=== PATIENT | female | born 1985 | race American Indian/Alaskan Native ===

== ENCOUNTER 2021-01-09 09:23 | Outpatient (CLI) | payer OTHER ==
[2021-01-09 09:47] VITALS: BP 126/80
--- NOTE | 2021-01-09 10:46 | Anesthesia Day of Surgery ---
Anesthesia Day of Surgery - Day of Surgery Patient Examined: Yes Patient H&P Reviewed: Yes Patient is NPO: No (0700) Beta Blockers: No Cardiac Clearance: No Pulmonary Clearance: No Goran's Test: N/A
[2021-01-09] MEDS ORDERED: LACTATED RINGERS 1,000 ML IV ONE (11:00)
[2021-01-09 11:04] LABS: Hematocrit 38.6 % (30.3-42.9); Hemoglobin 12.7 gm/dl (10.1-14.3); Mean Corpuscular HGB Conc 33 % (30-34); Mean Corpuscular Volume 79 fl (79-97); Platelet Count 379 K/mm3 (140-440); Red Blood Count 4.91 M/mm3 (3.65-5.03); Red Cell Distribution Width 14.4 % (13.2-15.2)
== END 2021-01-09 11:05 | disposition home or self-care (01) ==
LOC: TRG 09:23 → APU 09:23 → TRG 11:05 → EDSTATUS 11:30
DX: N88.3 Incompetence of cervix uteri (principal); Z79.899 Other long term (current) drug therapy; Z82.49 Family history of ischemic heart disease and other diseases of the circulatory system; Z83.3 Family history of diabetes mellitus
CPT/HCPCS: 36415; 85027; 86850; 86900; 86901

== ENCOUNTER 2021-01-11 10:09 | Outpatient (CLI) | payer OTHER ==
[2021-01-11] MEDS ORDERED: LACTATED RINGERS 500 ML IV ONE (10:28)
[2021-01-11 12:22] LABS: Hematocrit 39.3 % (30.3-42.9); Hemoglobin 12.8 gm/dl (10.1-14.3); Mean Corpuscular HGB Conc 33 % (30-34); Mean Corpuscular Volume 77 fl (79-97); Platelet Count 390 K/mm3 (140-440); Red Blood Count 5.07 M/mm3 (3.65-5.03); Red Cell Distribution Width 14.4 % (13.2-15.2)
[2021-01-11] MEDS ORDERED: LACTATED RINGERS 1,000 ML IV ONE (12:36)
[2021-01-11] MEDS ORDERED: BUPIVACAINE /DEX-WATER 0.75% (2 ML) AMPULE INFILTRATI ONE (13:13)
[2021-01-11] MEDS ORDERED: ONDANSETRON 4 MG/2 ML INJ ONE (13:13)
--- NOTE | 2021-01-11 13:56 | Anesthesia Day of Surgery ---
Anesthesia Day of Surgery - Day of Surgery Patient Examined: Yes Patient H&P Reviewed: Yes Patient is NPO: Yes Beta Blockers: No Cardiac Clearance: No Pulmonary Clearance: No Goran's Test: N/A
--- NOTE | 2021-01-11 13:57 | Anesthesia Consultation ---
Anesthesia Consult and Med Hx Date of service: 01/11/21 - Airway Anesthetic Teeth Evaluation: Good ROM Head & Neck: Adequate Mental/Hyoid Distance: Adequate Mallampati Class: Class III Intubation Access Assessment: Possibly Difficult - Pulmonary Exam CTA: Yes - Cardiac Exam Cardiac Exam: RRR - Pre-Operative Health Status ASA Pre-Surgery Classification: ASA2 Proposed Anesthetic Plan: Spinal - Pulmonary Hx Smoking: No Hx Asthma: No Hx Sleep Apnea: No - Cardiovascular System Hx Hypertension: No Hx Heart Attack/AMI: No Hx Angina: No - Central Nervous System Hx Seizures: No Hx Psychiatric Problems: No - Gastrointestinal Hx Gastroesophageal Reflux Disease: No - Endocrine Hx Renal Disease: No Hx Liver Disease: No Hx Insulin Dependent Diabetes: No Hx Non-Insulin Dependent Diabetes: No Hx Hypothyroidism: No Hx Hyperthyroidism: No - Hematic Hx Anemia: No Hx Sickle Cell Disease: No - Other Systems Hx Alcohol Use: No - Additional Comments Anesthesia Medical History Comments: PCOS
--- NOTE | 2021-01-11 13:58 | Progress Note ---
Spinal Anesthesia Block - Spinal Anesthesia Block Start Time: 13:17 Stop Time: 13:24 Performed by:: TIARRA SINGH (Magdi MAYS) Procedure: Spinal anesthesia block is being performed for [cerclage]. H&P, labs have been reviewed. Patient's questions and concerns have been answered. Informed consent has been performed. Timeout has was performed. Patient in sitting position on side of bed. Sterile prep and drape was performed. 3 mL 1% lidocaine skin wheal at L [3]-L [4]. Needle introducer advanced. 25-gauge spinal needle advanced, [+] CSF [-] blood. [Marcaine 7.5mg] Spinal dose was given. All needles removed. Patient tolerated procedure well.
[2021-01-11] MEDS ORDERED: INDOMETHACIN 25 MG CAP PO ONE (14:00)
[2021-01-11] MEDS ORDERED: fentaNYL 100 MCG/2 ML INJ ONE (14:03)
[2021-01-11] MEDS ORDERED: ONDANSETRON 4 MG/2 ML INJ IV PRN (14:30)
[2021-01-11 15:21] VITALS: BP 107/71
--- NOTE | 2021-01-11 15:43 | Operative Report ---
Operative Report Operative Report: PRE-OPERATIVE DIAGNOSIS: 1. Single intrauterine at 17w 0d gestation 2. Recurrent loss 3. Cervical incompetence 4. Advanced Maternal Age POST-OPERATIVE DIAGNOSIS: Same PROCEDURE: History indicated Reyes cerclage ATTENDING: Rasheeda Dennison MD ANESTHESIA: Spinal COMPLICATIONS: None. ESTIMATED BLOOD LOSS: 5 cc FINDINGS: Normal appearing, closed cervix with no lesions. Subjectively shortened cervix. Normal external and internal genitalia. Cerclage placed with Mersaline tape x 1 and secured at 12 oclock position. INDICATIONS: Cervical incompetence with multiple 2nd trimester losses. All risks, benefits and alternatives were discussed and informed consent was obtained. PROCEDURE: The patient was taken to the operating room and a spinal anesthetic was administered without difficulty. The patient was placed in the dorsal lithotomy position, legs were positioned in Goran stirrups. Analgesia was deemed to be adequate. The patient was prepped and draped in the usual sterile fashion and put in Trendelenburg. The patient's bladder was catheterized. A weighted sterile retractor was placed in the vagina followed by an anterior retractor to better visualize the cervix. A right angle retractor was placed in the lateral side wall of the vagina. Ring forceps were placed on the anterior and posterior lips of the cervix for traction and to create a plain to place the stitch without rupturing membrane. A 5 Mersaline tape suture was use to place a stitch circumferentially around the cervix from 12 o'clock to 9 o'clock, 9 o'clock to 6 o'clock, 6 o'clock to 3 o'clock and from 3 o'clock to 12 o'clock at the level of the cervico-vaginal junction. The stitch was then tied with multiple knots to secure it. All instruments were removed from the vagina. Excellent hemostasis was noted. The bladder was then drained at the end of the procedure with a sterile catheter. The patient was taken to the recovery room in stable condition. Sponge, lap, needle counts were correct times two.
--- NOTE | 2021-01-11 16:02 | Post Anesthesia Evaluation ---
- Post Anesthesia Evaluation Patient Participated: Yes Airway Patent: Yes Stable Respiratory Function: Yes Nausea/Vomiting: No Temp > 96.8F: Yes Pain Manageable: Yes Adequeate Hydration: Yes Anesthesia Complications: No Block Receding Appropriately: Yes Patient on Ventilator: No
== END 2021-01-11 18:20 | disposition home or self-care (01) ==
LOC: TRG 10:09 → APU 10:51 → EDSTATUS 11:30 → LD 15:00 → TRG 18:20
PROVIDERS: ATTEND Obstetrics & Gynecology Maternal & Fetal Medicine
DX: O34.32 Maternal care for cervical incompetence, second trimester (principal); Z3A.17 17 weeks gestation of pregnancy; Z82.49 Family history of ischemic heart disease and other diseases of the circulatory system; Z79.899 Other long term (current) drug therapy; Z98.890 Other specified postprocedural states
CPT/HCPCS: 36415; 59320; 85027; 86850; 86900; 86901; J3010; J3490; J2405

== ENCOUNTER 2021-06-14 15:39 | Outpatient (CLI) | payer OTHER ==
[2021-06-14] MEDS ORDERED: LACTATED RINGERS 1,000 ML ONE ×2 (16:52→23:27)
[2021-06-14 17:35] LABS: Bacteria,Urine 1+ /HPF (Negative); Bilirubin,Urine NEG (Negative); Blood,Urine NEG (Negative); Color,Urine Yellow (Yellow); Mucus,Urine 1+ /HPF; Urobilinogen,Urine < 2.0 mg/dL (<2.0)
[2021-06-14 17:40] LABS: Amphetamine Screen,Urine Negative; Benzodiazepines Screen,Urine Negative; Cannabinoid Screen,Urine Negative; Cocaine Screen,Urine Negative; Methadone Screen,Urine Negative; Opiate Screen,Urine Negative
--- NOTE | 2021-06-14 18:12 | Ultrasound Report ---
ULTRASOUND BIOPHYSICAL PROFILE INDICATION: IUGR: EFW,ENRIQUE,Placenta location,BPP. COMPARISON: None available. FINDINGS: BREATHING MOVEMENT = 0 GROSS BODY MOVEMENT = 2 TONE = 2 QUALITATIVE AMNIOTIC FLUID VOLUME = 2 TOTAL BIOPHYSICAL SCORE = 01/22 AMNIOTIC FLUID INDEX (cm) = 12.7 PRESENTATION: Cephalic. HEART RATE (beats per minute): 152 IMPRESSION: 1. biophysical profile = 11/22 Signer Name: Adrian Yi MD Signed: 06/14/2021 6:08 PM Workstation Name: [email or web address]
--- NOTE | 2021-06-14 18:15 | Ultrasound Report ---
ULTRASOUND OBSTETRIC INDICATION / CLINICAL INFORMATION: IUGR: EFW,ENRIQUE,Placenta location,BPP. Clinical Gestational Age (GA): 39 weeks 0 days TECHNIQUE: Transabdominal. COMPARISON: None available. FINDINGS: There is a single intrauterine . Biparietal Diameter = 9.2 cm = 37 weeks, 3 day(s). Head Circumference = 32.7 cm = 37 weeks, 1 day(s). Abdominal Circumference = 35.1 cm = 39 weeks, 0 day(s). Femur Length = 7.1 cm = 36 weeks, 3 day(s). Average Ultrasound Age (AUA) = 37 weeks, 4 day(s). Heart Rate: 152 beats per minute. Estimated Weight in grams (if calculated): 3382 Estimated Weight Growth Percentile (if calculated): Position: cephalic. Cervix: closed. Length in cm (if measured): Placenta: Posterior fundal and free of the os. Amniotic Fluid Volume: normal Amniotic Fluid Index (ENRIQUE) in cm (if calculated): . Maternal Adnexa: No significant abnormality. IMPRESSION: 1. Single, living intrauterine with estimated sonographic age of 37 weeks, 4 day(s). 2. No significant sonographic abnormality. Signer Name: Adrian Yi MD Signed: 06/14/2021 6:10 PM Workstation Name: [email or web address]
[2021-06-14 22:10] VITALS: BP 106/58
== END 2021-06-14 16:37 | disposition home or self-care (01) ==
LOC: TRG 15:39 → APU 15:41 → TRG 16:37
PROVIDERS: ATTEND Obstetrics & Gynecology
DX: O34.33 Maternal care for cervical incompetence, third trimester (principal); O47.03 False labor before 37 completed weeks of gestation, third trimester; O09.523 Supervision of elderly multigravida, third trimester; Z3A.39 39 weeks gestation of pregnancy
CPT/HCPCS: 59025; 76816; 76819; 80307; 81001; 96360

== ENCOUNTER 2021-06-16 02:13 | Inpatient (IN) | payer OTHER ==
[2021-06-16] MEDS ORDERED: OXYTOCIN 10 UNIT/1 ML INJ IM PRN (03:37)
[2021-06-16] MEDS ORDERED: METHYLERGONOVINE MALEATE 0.2 MG/ML VIAL IM PRN (03:37)
[2021-06-16] MEDS ORDERED: BUTORPHANOL 2 MG/1 ML INJ IV PRN (03:37)
[2021-06-16] MEDS ORDERED: ONDANSETRON 4 MG/2 ML INJ IV PRN (03:37)
[2021-06-16] MEDS ORDERED: TERBUTALINE 1 MG/1 ML INJ SUB-Q PRN (03:37)
[2021-06-16] MEDS ORDERED: ACETAMINOPHEN 325 MG TAB PO PRN (03:37)
[2021-06-16] MEDS ORDERED: miSOPROStol 200 MCG TAB PR PRN (03:37)
[2021-06-16] MEDS ORDERED: LIDOCAINE (2%) 20 MG/1 ML VIAL 20 ML MDV INFILTRATI ONE ×2 (03:37→12:38)
[2021-06-16] MEDS ORDERED: MINERAL OIL 30 ML ORAL LIQD PO PRN (03:37)
[2021-06-16] MEDS ORDERED: ePHEDrine SULFATE 50 MG/1 ML INJ IV PRN ×2 (03:37→04:28)
[2021-06-16] MEDS ORDERED: LOPERAMIDE 2 MG CAP PO PRN (03:37)
[2021-06-16] MEDS ORDERED: fentaNYL 100 MCG/2 ML INJ IV PRN (03:37)
[2021-06-16] MEDS ORDERED: CARBOPROST TROMETHAMINE 250 MCG/1 ML INJ IM PRN (03:37)
[2021-06-16] MEDS ORDERED: OXYTOCIN DRIP 30 UNITS/500 ML BAG IV SCH ×2 (04:00)
[2021-06-16] MEDS: LACTATED RINGERS 1,000 ML IV SCH ×3 (04:27→09:47)
[2021-06-16] MEDS ORDERED: NALOXONE 2 MG/2 ML INJ IV PRN (04:28)
--- NOTE | 2021-06-16 04:33 | Anesthesia Consultation ---
Anesthesia Consult and Med Hx Date of service: 06/16/21 - Airway Anesthetic Teeth Evaluation: Poor ROM Head & Neck: Adequate Mental/Hyoid Distance: Adequate Mallampati Class: Class II Intubation Access Assessment: Probably Good - Pulmonary Exam CTA: Yes - Cardiac Exam Cardiac Exam: RRR - Pre-Operative Health Status ASA Pre-Surgery Classification: ASA2 Proposed Anesthetic Plan: Epidural - Pulmonary Hx Smoking: No Hx Asthma: No Hx Respiratory Symptoms: No SOB: No COPD: No Home Oxygen Therapy: No Hx Pneumonia: No Hx Sleep Apnea: No - Cardiovascular System Hx Hypertension: No Hx Coronary Artery Disease: No Hx Heart Attack/AMI: No Hx Angina: No Hx Percutaneous Transluminal Coronary Angioplasty (PTCA): No Hx Cardia Arrhythmia: No Hx Pacemaker: No Hx Internal Defibrillator: No Hx Valvular Heart Disease: No Hx Heart Murmur: No Hx Peripheral Vascular Disease: No - Central Nervous System Hx Neuromuscular Disorder: No Hx Seizures: No CVA: No Hx Back Pain: Yes Hx Psychiatric Problems: No - Gastrointestinal Hx Ulcer: No Hx Gastroesophageal Reflux Disease: No - Endocrine Hx Renal Disease: Yes (UTIs) Hx End Stage Renal Disease: No Hx Cirrhosis: No Hx Liver Disease: No Hx Insulin Dependent Diabetes: No Hx Non-Insulin Dependent Diabetes: No Hx Thyroid Disease: No Hx Hypothyroidism: No Hx Hyperthyroidism: No - Hematic Hx Anemia: No Hx Sickle Cell Disease: No - Other Systems Hx Alcohol Use: No Hx Substance Use: No Hx Cancer: No Hx Obesity: Yes
[2021-06-16 04:49] LABS: Mean Corpuscular HGB Conc 30 % (30-34); Platelet Count 270 K/mm3 (140-440); Red Blood Count 5.06 M/mm3 (3.65-5.03); Red Cell Distribution Width 18.2 % (13.2-15.2)
[2021-06-16 04:52] LABS: Hematocrit 34.6 % (30.3-42.9); Hemoglobin 10.2 gm/dl (10.1-14.3); Mean Corpuscular Volume 68 fl (79-97)
[2021-06-16] MEDS ORDERED: fentaNYL-BUPIV 2 MCG/ML-0.125% 200 MCG/100 ML BAG EPIDURAL SCH (05:00)
--- NOTE | 2021-06-16 05:20 | Progress Note ---
Labor Epidural - Labor Epidural Start Time: 05:00 Stop Time: 05:13 Performed by:: GARETH HUMPHRIES Procedure: Patient is requesting epidural for labor pain. H&P and labs reviewed. Procedure explained, questions answered, consent obtained. Patient placed in sitting position with monitors applied. Timeout performed immediately before start of procedure. Prep/drape in usual sterile fashion. Skin localized 3 mL 1% lidocaine at L[2]-L[3] interspace. 18-gauge [employer] Labtead epidural needle advanced to MIGUEL with saline at [8] cm. No blood/CSF noted via epidural needle. Epidural catheter advanced to [12] cm. Negative aspiration for blood and CSF via catheter, negative response to test dose 3 ml 1.5% lidocaine w/ epi. Sterile dressing applied followed by tape reinforcement. Patient tolerated procedure well. No immediate complications noted.
--- NOTE | 2021-06-16 05:33 | History and Physical Report ---
History of Present Illness Date of examination: 06/16/21 Date of admission: 06/16/21 03:38 Chief complaint: LOF History of present illness: 35 y/o at 39-6/7 weeks presents to OBT reporting LOF. No VB. Good FM. CTX started after LOF. In OBT, SVE was 4/80%/-2. She is admitted for Term PROM. Past History Past Medical History: no pertinent history Family/Genetic History: none Social history: no significant social history - Obstetrical History Expected Date of Delivery: 06/17/21 Actual Gestation: 39 Week(s) 6 Day(s) : 6 Number of Pregnancies: 1 Spontaneous Abortions: 3 Medications and Allergies Allergies Allergy/AdvReac Type Severity Reaction Status Date / Time No Known Allergies Allergy Verified 06/14/21 16:05 Home Medications Medication Instructions Recorded Confirmed Last Taken Type Indomethacin [Indocin] 25 mg PO Q8H 2 Days #6 capsule 01/11/21 Unknown Rx Active Meds: Active Medications Acetaminophen (Acetaminophen 325 Mg Tab) 650 mg PO Q4H PRN PRN Reason: Pain, Mild (1-3) Butorphanol Tartrate (Butorphanol 2 Mg/1 Ml Inj) 1 mg IV Q2H PRN PRN Reason: Pain, Moderate(4-6) LABOR PAIN Carboprost Tromethamine (Carboprost Tromethamine 250 Mcg/1 Ml Inj) 250 mcg IM ONCE PRN PRN Reason: Uterine Bleeding Ephedrine Sulfate (Ephedrine Sulfate 50 Mg/1 Ml Inj) 10 mg IV Q2M PRN PRN Reason: Hypotension Fentanyl (Fentanyl 100 Mcg/2 Ml Inj) 100 mcg IV Q2H PRN PRN Reason: Pain,Severe (7-10) LABOR PAIN Oxytocin/Sodium Chloride (Pitocin/Ns 30 Unit/500ml) 30 units in 500 mls @ 2 mls/hr IV TITR TAYLOR; Protocol Lactated Ringer's (Lactated Ringers) 1,000 mls @ 125 mls/hr IV DIRECT TAYLOR Last Admin: 06/16/21 05:04 Dose: 125 mls/hr Documented by: Oxytocin/Sodium Chloride (Pitocin/Ns 30 Unit/500ml) 30 units in 500 mls @ 40 mls/hr IV TITR TAYLOR; Protocol Fentanyl/Bupivacaine/Sodium Chlor (Fentanyl-Bupiv 2 Mcg/Ml-0.125%) 200 mcg in 100 mls @ 12 mls/hr EPIDURAL TITR TAYLOR; Protocol Loperamide HCl (Loperamide 2 Mg Cap) 2 mg PO ONCE PRN PRN Reason: give with Hemabate Methylergonovine Maleate (Methylergonovine Maleate 0.2 Mg/Ml Vial) 0.2 mg IM ONCE PRN PRN Reason: Uterine Bleeding Mineral Oil (Mineral Oil 30 Ml Oral Liqd) 30 ml PO QHS PRN PRN Reason: Constipation Misoprostol (Misoprostol 200 Mcg Tab) 800 mcg IN ONCE PRN PRN Reason: Uterine Bleeding Naloxone HCl (Naloxone 2 Mg/2 Ml Inj) 0.2 mg IV Q5M PRN PRN Reason: Respiratory sedation Ondansetron HCl (Ondansetron 4 Mg/2 Ml Inj) 4 mg IV Q8H PRN PRN Reason: Nausea And Vomiting Oxytocin (Oxytocin 10 Unit/1 Ml Inj) 10 unit IM ONCE PRN PRN Reason: Uterine Bleeding Terbutaline Sulfate (Terbutaline 1 Mg/1 Ml Inj) 0.25 mg SUB-Q ONCE PRN PRN Reason: Hyperstimulation/Hypertonicity Review of Systems All systems: negative - Vital Signs Vital signs: Vital Signs Pulse BP Pulse Ox 121 H 112/84 98 06/16/21 02:35 06/16/21 02:35 06/16/21 02:35 Temp Pulse Resp BP Pulse Ox 98.7 F 91 H 18 101/65 97 06/16/21 02:37 06/16/21 05:28 06/16/21 02:37 06/16/21 05:27 06/16/21 05:28 - Physical Exam Breasts: Positive: normal Cardiovascular: Regular rate Lungs: Positive: Normal air movement Abdomen: Positive: normal appearance Genitourinary (Female): Positive: normal external genitalia Vulva: both: normal Vagina: Positive: normal moisture Uterus: Positive: enlarged Adnexa: both: normal Anus/Rectum: Positive: normal perianal skin Extremities: Positive: normal Deep Tendon Reflex Grade: Normal +2 - Obstetrical FHR: category 1 Uterine Contraction Monitor Mode: Palpation Cervical Dilatation: 4 Cervical Effacement Percentage: 80 station: -3 Uterine Contraction Frequency (min): 4 Uterine Contraction Pattern: Regular Results Result Diagrams: 06/16/21 03:24 Abnormal lab results 12/31/21 Range/Units 03:24 RBC 5.06 H (3.65-5.03) M/mm3 MCV 68 L (79-97) fl MCH 20 L (28-32) pg RDW 18.2 H (13.2-15.2) % All other labs normal. Assessment and Plan - Patient Problems (1) 39 weeks gestation of Current Visit: Yes Status: Acute Plan to address problem: care is UTD. (2) Full-term PROM with onset of labor within 24 hours of rupture Current Visit: Yes Status: Acute Plan to address problem: Admit to L&D. Patient in labor now. Augment with Pitocin. (3) AMA (advanced maternal age) multigravida 35+ Current Visit: Yes Status: Acute Plan to address problem: care is UTD. (4) Labor abnormal Current Visit: Yes Status: Acute Plan to address problem: Admit to L&D. Patient in labor now. Augment with Pitocin.
[2021-06-16] MEDS ORDERED: SODIUM CHLORIDE 0.9% 1000 ML 1,000 ML VG SCH (09:00)
--- NOTE | 2021-06-16 09:19 | Event Note ---
Date: 06/16/21 Assumed care of patient at 08:00 this morning. FSE replaced at 08:50. Normal FHR baseline rate and moderate variability with variable FHR decelerations and prolonged FHR deceleration which resolved when patient was repostioned to hands/knees. Pitocin turned off and amnioinfusion ordered and informed nurse to start amnioinfusion. O2 applied per face mask at 10 LPM. SQ Brethine given. Dr. Tang consulted and also viewed FHR tracing.
[2021-06-16] MEDS ORDERED: LANOLIN/ZINC/DIMETHICONE (LANSINOH) 7 GM TP PRN ×2 (13:33)
[2021-06-16] MEDS ORDERED: HYDROCORTISONE 25 MG RECTAL SUPP PR PRN (13:33)
[2021-06-16] MEDS ORDERED: BENZOCAINE/MENTHOL 20/0.5% TOP SPRAY 56 GM TP PRN (13:33)
[2021-06-16] MEDS ORDERED: MAGNESIUM HYDROXIDE (MOM) ORAL LIQD UDC PO PRN (13:33)
--- NOTE | 2021-06-16 13:39 | Procedure Note ---
OB Delivery Note - Delivery Date of Delivery: 06/16/21 Surgeon: ROSARIO RATLIFF Estimated blood loss: 300cc - Vaginal Delivery presentation: vertex Delivery position: OA Intrapartum events: mult.variable deceleratio Delivery monitor: external FHT, external uterine Route of delivery: Delivery placenta: spontaneous Delivery cord: 3 umbilical vessels Episiotomy: midline Delivery laceration: vaginal side wall Delivery repair: vicryl Anesthesia: local, epidural Delivery comments: Spontaneous vaginal delivery at 12:31 of liveborn male weighing 3.27 kg over 2nd degree midline episiotomy with apgars of 8/9. Variable FHR decelerations prior to delivery; NICU called to attend delivery due to FHR decelerations. Mild right anterior shoulder dystocia, resolved with Fredy maneuver and delivery of posterior arm. Baby placed skin to skin with mom immediately after delivery. Baby dried with warm blankets and suctioned with bulb syringe. Spontaneous cry and respirations. 3 vessel cord double clamped and cut. Cord blood obtained. Spontaneous delivery of intact placenta and membranes at 12:34; trailing membranes. EBL 300 cc. Pitocin to IV fluids after delivery of placenta. Fundus firm and midline at 1 FB above umbilicus. 2nd degree midline episiotomy and left vaginal laceration repaired with 2-0 vicryl in usual sterile fashion. No other lacerations noted. Vaginal sweep negative. Sponge count correct. Mother and baby stable in birthing room. Baby moving all extremities well.
[2021-06-16] MEDS: IBUPROFEN 600 MG TAB PO SCH (15:07)
[2021-06-16 15:11] LABS: Hepatitis C Virus Antibody Non-Reactive (NonReactive)
[2021-06-16] MEDS: HYDROcodone/ACETAMINOPHEN 5-325 MG TAB PO PRN (16:21)
[2021-06-16] MEDS: WITCH HAZEL/ GLYCERIN PAD TP PRN (16:42)
--- NOTE | 2021-06-16 17:09 | Ultrasound Report ---
US pelvic limited INDICATION: check for accessory placental lobe/retained placen. TECHNIQUE: Limited pelvic ultrasound COMPARISON: None available. FINDINGS: The uterus is enlarged consistent with recent . There is a 3 cm solid area in the lower endo metrium without internal flow. There is a 4.5 cm fibroid in the superior myometrium. IMPRESSION: 1. 3 cm solid area in the lower endometrium without internal flow that could indicate a portion of re tained placenta. Signer Name: Sunil Parks MD Signed: 06/16/2021 5:05 PM Workstation Name: [id number]
[2021-06-16] MEDS ORDERED: GENTAMICIN 100 MG in SODIUM CHLORIDE 0.9% 100 ML IV SCH (17:45)
[2021-06-16] MEDS ORDERED: miSOPROStol 200 MCG TAB PR ONE (17:50)
[2021-06-16] MEDS ORDERED: METHYLERGONOVINE 0.2 MG TABLET PO SCH (18:00)
[2021-06-16] MEDS: AMPICILLIN/NS 2 GM/100 ML 2 GM/100 ML BAG IV SCH (19:15)
[2021-06-17] MEDS: HYDROcodone/ACETAMINOPHEN 5-325 MG TAB PO PRN ×3 (01:00→11:51)
[2021-06-17] MEDS: AMPICILLIN/NS 2 GM/100 ML 2 GM/100 ML BAG IV SCH ×3 (02:01→20:12)
[2021-06-17] MEDS: IBUPROFEN 600 MG TAB PO SCH ×3 (02:02→20:09)
[2021-06-17 04:34] LABS: Hematocrit 31.9 % (30.3-42.9); Hemoglobin 9.4 gm/dl (10.1-14.3)
[2021-06-17] MEDS: DOCUSATE SODIUM 100 MG CAP PO SCH ×2 (06:00→11:55)
--- NOTE | 2021-06-17 08:00 | Progress Note ---
Assessment and Plan PPD#1 doing fair 1. need better pain control 2. Routine PP care and discharge home in the am Subjective Date of service: 06/17/21 Principal diagnosis: PPD#1 Interval history: Pt states that she has a lot of pain to laceration site when she voids and also to her lower back. Pt is bottle feeding. Vag bleed like a period Objective - Constitutional Vitals: Vital Signs - 12hr 06/17/21 06/17/21 06/17/21 01:00 01:39 05:00 Temperature 98.4 F 98.1 F Pulse Rate 93 H 83 Respiratory 18 20 20 Rate Blood Pressure 119/81 Blood Pressure 120/73 [Right] O2 Sat by Pulse 97 97 Oximetry O2 Sat by Pulse Oximetry [ Bilateral] 06/17/21 06:00 Temperature Pulse Rate Respiratory 18 Rate Blood Pressure Blood Pressure [Right] O2 Sat by Pulse Oximetry O2 Sat by Pulse 99 Oximetry [ Bilateral] General appearance: Present: no acute distress - Neck Neck: normal ROM - Respiratory Respiratory effort: normal - Breasts Breasts: deferred - Cardiovascular Rhythm: regular Extremities: No edema - Gastrointestinal General gastrointestinal: Present: soft, non-tender - Genitourinary Female genitourinary: other (Fundus firm, non-tender 1cm below the umbilicus) - Integumentary Integumentary: warm, dry - Neurologic Neurologic: moves all extremities - Psychiatric Psychiatric: cooperative - Labs CBC & Chem 7: 06/17/21 04:07 Labs: Abnormal lab results 06/17/21 Range/Units 04:07 Hgb 9.4 L (10.1-14.3) gm/dl Medications & Allergies - Medications Allergies/Adverse Reactions: Allergies No Known Allergies Allergy (Verified 06/14/21 16:05) Home Medications: Home Medications Medication Instructions Recorded Confirmed Last Taken Type Indomethacin [Indocin] 25 mg PO Q8H 2 Days #6 capsule 01/11/21 Unknown Rx Active Medications: Generic Name Dose Route Start Last Admin Trade Name Freq PRN Reason Stop Dose Admin Hydrocodone Bitart/Acetaminophen 2 each 06/16/21 13:33 06/17/21 06:00 Hydrocodone/Acetaminophen 5-325 Mg Tab PO 2 each Q6H PRN Administration Pain, Moderate (4-6) Benzocaine/Menthol 1 spray 06/16/21 13:33 06/16/21 16:41 Benzocaine/Menthol 20/0.5% Top [place] 56 Gm TP 1 spray PRN PRN Administration Episiotomy Pain Docusate Sodium 100 mg 06/16/21 14:00 06/17/21 06:00 Docusate Sodium 100 Mg Cap PO Not Given BID [facility] Ferrous Sulfate 325 mg 06/17/21 10:00 Ferrous Sulfate 325 Mg Tab PO QDAY [facility] Hydrocortisone Acetate 25 mg 06/16/21 13:33 Hydrocortisone 25 Mg Rectal Supp UT BID PRN Hemorrhoids Ampicillin Sodium 2 gm in 100 mls @ 100 mls/hr 06/16/21 18:00 06/17/21 02:01 Ampicillin/Ns 2 Gm/100 Ml IV 100 mls/hr Q6H [facility] Administration Protocol Gentamicin Sulfate/Sodium Chloride 100 mg in 100 mls @ 200 mls/hr 06/16/21 22:00 06/17/21 00:00 Gentamicin/Ns 100 Mg/100 Ml IV 200 mls/hr Q8HR TAYLOR Administration Ibuprofen 600 mg 06/16/21 14:00 06/17/21 02:02 Ibuprofen 600 Mg Tab PO 600 mg Q6H TAYLOR Administration Magnesium Hydroxide 30 ml 06/16/21 13:33 Magnesium Hydroxide (Mom) Oral Liqd Udc PO HS PRN Constipation Multi-Ingredient Ointment 1 applic 06/16/21 13:33 Lanolin/Zinc/Dimethicone (Lansinoh) 7 Gm TP PRN PRN Sore Nipples Multi-Ingredient Ointment 1 applic 06/16/21 13:33 Lanolin/Zinc/Dimethicone (Lansinoh) 7 Gm TP PRN PRN dryness/cracking Sodium Chloride 10 ml 06/16/21 14:00 Sodium Chloride 0.9% 10 Ml Flush Syringe IV 06/23/21 13:59 PRN NR Witch Maggie/Glycerin 1 each 06/16/21 13:33 06/16/21 16:42 Witch Maggie/ Glycerin Pad TP 1 each PRN PRN Administration Hemorrhoid/cleansing/soothing
[2021-06-17] MEDS ORDERED: FERROUS SULFATE 325 MG TAB PO SCH (10:00)
[2021-06-17] MEDS: GENTAMICIN/NS 100 MG/100 ML 100 MG/100 ML BAG IV SCH ×3 (11:55→22:00)
[2021-06-17] MEDS ORDERED: LACTATED RINGERS 1000 ML IV SOLN IV SCH (16:00)
[2021-06-17] MEDS: WITCH HAZEL/ GLYCERIN PAD TP PRN (17:18)
--- NOTE | 2021-06-17 17:44 | Event Note ---
Date: 06/17/21 pt evaluated and pelvic 3-60/-2 with FHR category I; AROM done with clear fluid and IUPC placed and pt to get pitocin per protocol. Pitocin now at 4mu/min. Plan of care discussed and pt agrees. Hopeful for vaginal delivery.
[2021-06-18] MEDS: GENTAMICIN/NS 100 MG/100 ML 100 MG/100 ML BAG IV SCH ×2 (01:33→01:34)
[2021-06-18] MEDS: AMPICILLIN/NS 2 GM/100 ML 2 GM/100 ML BAG IV SCH ×2 (01:36→03:18)
[2021-06-18] MEDS: IBUPROFEN 600 MG TAB PO SCH ×2 (03:19→15:59)
[2021-06-18] MEDS: DOCUSATE SODIUM 100 MG CAP PO SCH ×2 (03:56→11:26)
[2021-06-18 06:35] LABS: Basophils % (Auto) 0.3 % (0.0-1.8); Eosinophils # (Auto) 0.2 K/mm3 (0.0-0.4); Eosinophils % (Auto) 1.5 % (0.0-4.3); Lymphocytes # (Auto) 2.4 K/mm3 (1.2-5.4); Lymphocytes % (Auto) 19.4 % (13.4-35.0); Mean Corpuscular HGB Conc 30 % (30-34); Monocytes # (Auto) 0.9 K/mm3 (0.0-0.8); Monocytes % (Auto) 7.6 % (0.0-7.3); Platelet Count 236 K/mm3 (140-440); Red Blood Count 4.57 M/mm3 (3.65-5.03); Red Cell Distribution Width 18.8 % (13.2-15.2)
[2021-06-18 06:39] LABS: Hematocrit 31.4 % (30.3-42.9); Hemoglobin 9.4 gm/dl (10.1-14.3); Mean Corpuscular Volume 69 fl (79-97)
--- NOTE | 2021-06-18 07:33 | Progress Note ---
Assessment and Plan PPD#2 with pelvic pain unclear source, GI with constipation vs abnormal u/s with ?retained products 1. Repeat pelvic u/s to definitely see if the 3cm structure still present and if it is, for surgical removal tomorrow with OR on diversion 2. Repeat cbc seen with with acceptable wbc of 12 3. MOM given since pt told nurse that this is an effective laxative for her; if not successful, then pt should be given dulcolax 4. Anesthesia team to be called concerning epidural site pain where pt reports severe discomfort 5. Straight cath urine to rule out as source of pain 6. Routine post op care. Subjective Date of service: 06/18/21 Principal diagnosis: PPD#2 Interval history: Pt c/o severe pelvic pain and lower back pain. pt also states that she has not had a BM and she has large hemorrhoids. pt declines to show me the hemorrhoids at this time stating it is embarrassing. Vag bleed less than a period. Pt believes the night nurses are not supportive. Objective - Constitutional Vitals: Vital Signs - 12hr 06/17/21 06/18/21 19:30 02:19 Temperature 98.7 F Pulse Rate 89 Respiratory 20 Rate Blood Pressure 109/79 O2 Sat by Pulse 99 Oximetry O2 Sat by Pulse 99 Oximetry [ Bilateral] General appearance: Present: no acute distress - Neck Neck: normal ROM - Respiratory Respiratory effort: normal - Breasts Breasts: normal - Cardiovascular Rhythm: regular Extremities: No edema - Gastrointestinal General gastrointestinal: Present: soft, non-tender - Genitourinary Female genitourinary: other (fundus firm below umbilicus, non-tender and lochia scant) - Integumentary Integumentary: warm, dry - Neurologic Neurologic: moves all extremities - Psychiatric Psychiatric: cooperative - Labs CBC & Chem 7: 06/18/21 06:18 Labs: Abnormal lab results 06/18/21 Range/Units 06:18 WBC 12.2 H (4.5-11.0) K/mm3 Hgb 9.4 L (10.1-14.3) gm/dl MCV 69 L (79-97) fl MCH 21 L (28-32) pg RDW 18.8 H (13.2-15.2) % [place] % (Auto) 7.6 H (0.0-7.3) % [place] # (Auto) 0.9 H (0.0-0.8) K/mm3 Seg Neutrophils % 71.2 H (40.0-70.0) % Seg Neutrophils # 8.7 H (1.8-7.7) K/mm3 Medications & Allergies - Medications Allergies/Adverse Reactions: Allergies No Known Allergies Allergy (Verified 06/14/21 16:05) Home Medications: Home Medications Medication Instructions Recorded Confirmed Last Taken Type Indomethacin [Indocin] 25 mg PO Q8H 2 Days #6 capsule 01/11/21 06/18/21 Unknown Rx Active Medications: Generic Name Dose Route Start Last Admin Trade Name Freq PRN Reason Stop Dose Admin Hydrocodone Bitart/Acetaminophen 2 each 06/16/21 13:33 06/17/21 11:51 Hydrocodone/Acetaminophen 5-325 Mg Tab PO 2 each Q6H PRN Administration Pain, Moderate (4-6) Benzocaine/Menthol 1 spray 06/16/21 13:33 06/16/21 16:41 Benzocaine/Menthol 20/0.5% Top [place] 56 Gm TP 1 spray PRN PRN Administration Episiotomy Pain Docusate Sodium 100 mg 06/16/21 14:00 06/18/21 03:56 Docusate Sodium 100 Mg Cap PO Not Given BID TAYLOR Ferrous Sulfate 325 mg 06/17/21 10:00 06/17/21 11:55 Ferrous Sulfate 325 Mg Tab PO 325 mg QDAY TAYLOR Administration Hydrocortisone Acetate 25 mg 06/16/21 13:33 06/17/21 16:44 Hydrocortisone 25 Mg Rectal Supp GA 25 mg BID PRN Administration Hemorrhoids Ampicillin Sodium 2 gm in 100 mls @ 100 mls/hr 06/16/21 18:00 06/18/21 03:18 Ampicillin/Ns 2 Gm/100 Ml IV 100 mls/hr Q6H TAYLOR Administration Protocol Gentamicin Sulfate/Sodium Chloride 100 mg in 100 mls @ 200 mls/hr 06/16/21 22:00 06/18/21 01:34 Gentamicin/Ns 100 Mg/100 Ml IV Not Given Q8HR TAYLOR Ibuprofen 600 mg 06/16/21 14:00 06/18/21 03:19 Ibuprofen 600 Mg Tab PO 600 mg Q6H TAYLOR Administration Lactated Ringer's 1,000 ml 06/17/21 16:00 06/17/21 16:45 Lactated Ringers 1000 Ml Iv Soln IV 1,000 ml DIRECT TAYLOR Administration Magnesium Hydroxide 30 ml 06/16/21 13:33 06/18/21 06:04 Magnesium Hydroxide (Mom) Oral Liqd Udc PO 30 ml HS PRN Administration Constipation Multi-Ingredient Ointment 1 applic 06/16/21 13:33 Lanolin/Zinc/Dimethicone (Lansinoh) 7 Gm TP PRN PRN Sore Nipples Multi-Ingredient Ointment 1 applic 06/16/21 13:33 Lanolin/Zinc/Dimethicone (Lansinoh) 7 Gm TP PRN PRN dryness/cracking Sodium Chloride 10 ml 06/16/21 14:00 Sodium Chloride 0.9% 10 Ml Flush Syringe IV 06/23/21 13:59 PRN NR [place]/Glycerin 1 each 06/16/21 13:33 06/17/21 17:18 [place]/ Glycerin Pad TP 1 each PRN PRN Administration Hemorrhoid/cleansing/soothing
--- NOTE | 2021-06-18 09:42 | Event Note ---
Date: 06/18/21 Notified by Geeta that the patient was c/o severe lower back pain. The procedure note was reviewed and nothing out of the ordinary was noted. The patient states that the pain is worse when she initially gets out of bed, but gets better as she moves around. The pain is better now than it has been. Examination of the site showed nothing other than some tenderness over the puncture site. The patient was advised to continue taking scheduled pain meds and ambulate as much as possible. At this time I do not think any imaging is necessary, but the patient was advised to report if the pain gets worse so that she can be reevaluated.
[2021-06-18] MEDS: HYDROcodone/ACETAMINOPHEN 5-325 MG TAB PO PRN (11:26)
[2021-06-18 11:39] LABS: Bilirubin,Urine NEG (Negative); Blood,Urine MOD (Negative); Color,Urine Yellow (Yellow); Mucus,Urine FEW /HPF; Protein,Urine <15 mg/dL mg/dL (Negative); Urobilinogen,Urine < 2.0 mg/dL (<2.0)
--- NOTE | 2021-06-18 12:43 | Ultrasound Report ---
US pelvic limited INDICATION: pelvic pain. COMPARISON: Previous ultrasound on 06/16/2021 FINDINGS: The endometrial stripe now measures 1.28 cm, without any internal flow. Myometrial masses measuring u p to 3.5 cm and noted likely indicating uterine fibroids. IMPRESSION: 1. Normal appearance of the endometrial stripe on the current exam. 2. Multiple uterine fibroids again seen. Signer Name: Sunil Parks MD Signed: 06/18/2021 12:38 PM Workstation Name: [email or web address]
--- NOTE | 2021-06-18 13:32 | Event Note ---
Date: 06/18/21 Patient states pelvic pain and back pain have resolved after she had BM. Pelvic US showed fibroids; no retained placenta noted. Patient desires discharge home today. Consulted with Dr. Tang. Dr. Tang states OK to discharge patient home today. Discussed with patient discharge instructions and warning signs. Advised patient to avoid intercourse, lifting, and housework. Rx Motrin and Ferrous Sulfate (see discharge summary). Also advised patient to continue taking her vitamin daily. Advised patient to follow up at [facility] in 2 weeks.
--- NOTE | 2021-06-18 13:35 | Discharge Summary ---
Providers - Providers Date of Admission: 06/16/21 03:38 Date of discharge: 06/18/21 Attending physician: TERRY GOMEZ MD Primary care physician: TERRY GOMEZ MD Hospitalization Reason for admission: rupture of membranes Delivery: Episiotomy: midline Other procedures: none complications: none Discharge diagnosis: IUP at term delivered baby: male Pertinent studies: Labs Hospital course: Stable hospital course Condition at discharge: Good Disposition: 01 HOME / SELF CARE / HOMELESS - Discharge Diagnoses (1) Term delivered Status: Acute (2) Anemia Status: Acute Plan - Discharge Medications Prescriptions: Ferrous Sulfate [Feosol 325 MG tab] 325 mg PO QDAY 30 Days #30 tablet Ibuprofen [Motrin] 800 mg PO Q8HR PRN 7 Days #21 tablet PRN Reason: Pain, Moderate (4-6) - Provider Discharge Summary Activity: routine, no sex for 6 weeks, no heavy lifting 4 weeks, no strenuous exercise Diet: routine Instructions: routine Additional instructions: Continue taking your vitamin daily at home. Follow up at [facility] in 2 weeks. Call your doctor immediately for: * Fever > 100.5 * Heavy vaginal bleeding ( >1 pad per hour) * Severe persistent headache * Shortness of breath * Reddened, hot, painful area to leg or breast - Follow up plan Follow up: ROSARIO RATLIFF CNM [Advanced Practice Nurse] - 14 Days
[2021-06-18 16:37] VITALS: BP 122/74
== END 2021-06-18 16:00 | disposition home or self-care (01) | DRG 806 ==
LOC: TRG 02:13 → APU 02:15 → TRG 03:37 → LD 03:38 → OB 19:43
PROVIDERS: ADMIT Obstetrics & Gynecology Gynecology; ATTEND Obstetrics & Gynecology Gynecology
PROC: 10E0XZZ Delivery of Products of Conception, External Approach (ICD-10-PCS; principal; 2021-06-16)
PROC: 0W8NXZZ Division of Female Perineum, External Approach (ICD-10-PCS; 2021-06-16)
PROC: 0UQGXZZ Repair Vagina, External Approach (ICD-10-PCS; 2021-06-16)
PROC: 3E0R3BZ Introduction of Anesthetic Agent into Spinal Canal, Percutaneous Approach (ICD-10-PCS; 2021-06-16)
PROC: 00HU33Z Insertion of Infusion Device into Spinal Canal, Percutaneous Approach (ICD-10-PCS; 2021-06-16)
PROC: 10907ZC Drainage of Amniotic Fluid, Therapeutic from Products of Conception, Via Natural or Artificial Opening (ICD-10-PCS; 2021-06-16)
DX: O42.02 Full-term premature rupture of membranes, onset of labor within 24 hours of rupture (principal); O71.4 Obstetric high vaginal laceration alone; Z37.0 Single live birth; Z20.822 Contact with and (suspected) exposure to COVID-19; O99.214 Obesity complicating childbirth; O76 Abnormality in fetal heart rate and rhythm complicating labor and delivery; Z3A.39 39 weeks gestation of pregnancy; O90.81 Anemia of the puerperium
CPT/HCPCS: 36415; 59025; 76857; 81001; 85014; 85018; 85025; 85027; 86592; 86706; 86803; 86850; 86900; 86901; 87086; 87806; G0378; J3490; J0290; J1580; J2590; J3010; J7120; U0003